=== PATIENT | female | born 1965 | race Caucasian/White ===

== ENCOUNTER 2016-07-31 15:40 | Emergency (ER) | payer BC ==
[~2016-07-31] VITALS: Ht 165.1 cm; Wt 117.0 kg
[2016-07-31 18:14] VITALS: BP 148/105
== END 2016-07-31 18:14 | disposition home or self-care (01) ==
LOC: ED 15:40
DX: J40 Bronchitis, not specified as acute or chronic (principal); E66.9 Obesity, unspecified

== ENCOUNTER 2017-04-05 11:36 | Emergency (ER) | payer BC ==
[~2017-04-05] VITALS: Ht 157.5 cm; Wt 114.3 kg
[2017-04-05 11:38] VITALS: BP 134/90; Ht 157.5 cm; Wt 114.3 kg
== END 2017-04-05 12:28 | disposition home or self-care (01) ==
LOC: ED 11:36
DX: J02.9 Acute pharyngitis, unspecified (principal); J98.01 Acute bronchospasm; Z98.51 Tubal ligation status

== ENCOUNTER 2017-07-06 19:17 | Emergency (ER) | payer BC ==
[~2017-07-06] VITALS: Ht 165.1 cm; Wt 114.8 kg
[2017-07-06 19:39] VITALS: Ht 165.1 cm; Wt 114.8 kg
[2017-07-06 21:37] VITALS: BP 118/85
== END 2017-07-06 21:37 | disposition home or self-care (01) ==
LOC: ED 19:17
DX: R05 Cough (principal); Z98.51 Tubal ligation status; Z90.49 Acquired absence of other specified parts of digestive tract